=== PATIENT | male | born 2000 | race Caucasian/White ===

== ENCOUNTER 2018-12-28 15:31 | Emergency (ER) | payer OTHER ==
[~2018-12-28] VITALS: Ht 170.2 cm; Wt 73.0 kg
[2018-12-28 15:32] VITALS: BP 138/61
[2018-12-28] MEDS ORDERED: NORC1TAB7 PO (16:59)
[2018-12-28] MEDS ORDERED: BACI500O21 TOP (16:59)
--- NOTE | 2018-12-28 17:00 | REP ---
RIGHT HAND, FOUR VIEWS: There is no evidence of an acute fracture, dislocation or intrinsic bone disease. IMPRESSION: No fracture or dislocation. Electronically Signed by Endy Bermudez MD 12/29/2018 09:01 A
== END 2018-12-28 17:08 | disposition home or self-care (01) ==
LOC: M ED 15:31
DX: T23.201A Burn of second degree of right hand, unspecified site, initial encounter (principal); X19.XXXA Contact with other heat and hot substances, initial encounter; Y92.89 Other specified places as the place of occurrence of the external cause; Y99.0 Civilian activity done for income or pay